=== PATIENT | male | born 1945 | race Caucasian/White ===

== ENCOUNTER 2025-02-15 08:45 | Outpatient (RCR) | payer MEDICARE, OTHER, SELFPAY | END 2025-02-15 16:43 | disposition home or self-care (01) | LOC: HO.WCC 08:45 | PROVIDERS: PCP Family Medicine; Visit Provider Surgery | DX: I87.302 Chronic venous hypertension (idiopathic) without complications of left lower extremity (principal); I11.0 Hypertensive heart disease with heart failure; I50.20 Unspecified systolic (congestive) heart failure; I73.00 Raynaud's syndrome without gangrene; G62.9 Polyneuropathy, unspecified; Z09 Encounter for follow-up examination after completed treatment for conditions other than malignant neoplasm; Z87.2 Personal history of diseases of the skin and subcutaneous tissue; Z87.891 Personal history of nicotine dependence | CPT/HCPCS: 11042; 11043; 29580; 97597; 99211; 99212 ==

== ENCOUNTER 2025-08-16 08:25 | Emergency (ER) | payer MEDICARE, OTHER, SELFPAY ==
--- NOTE | 2025-08-16 08:42 | ED.CPR ---
HPI - CPR General Chief Complaint: Cardiac Arrest/CPR Stated Complaint: CARDIAC ARREST,FALL OOB,APNIC,1SHOCK,PACEMAKER,8EP Time Seen by Provider: 08/16/25 08:41 Source: family and EMS Mode of arrival: EMS Limitations: other (CPR in progres) History of Present Illness ED Provider: HPI narrative: 79-year-old male with a history of atrial fibrillation on blood thinners, history of hypertension, CHF, reported kidney disease, nonsmoker nondrinker no drug use, reportedly family heard the patient fall, he was found unresponsive, EMS arrived on the scene with the patient in agonal respirations, reportedly he had advisable shocks x2 for ventricular fibrillation, then he was in pulseless electrical activity and the received a total of the additional 8 doses of epi, and then had another episode of shockable rhythm that point decision was made by the cruise to transport patient to emergency department. He arrived with left IO in place, I gel in place, Erlin CPR. Related Data Allergies Allergy/AdvReac Type Severity Reaction Status Date / Time No Known Allergies (No Known Allergy Unverified 08/16/25 08:55 Allergies*) Review of Systems Review of Systems: Yes Unobtainable due to mental status PMFSH Social History Social History Advance Directives: No Advance Directives Information Provided: No Physical Exam Exam: Exam: CPR is in progress Pupils dilated 4 mm Abrasion to the right side of the temporal area I-gel in place, some blood in the tube Bagging easily, moving air throughout Abdomen nondistended Pelvis is stable, no hip or ankle deformities, chronic skin changes throughout Abrasion to left forearm, left hand, left knee noted No trauma noted to the back of the head or along the spine of the back Vital Signs: Vital Signs: BMI result Body Mass Index 27.4 Medical Decision Making Medical Decision Making MDM Narrative: 9:23 AM 08/16/2025 (Dr. Anshul Chambers): Patient presented with CPR in progress, he is on blood thinners as reported later by the family with evidence of injury to the right temporal area during the initial collapse, we continued resuscitation he was given another round of epinephrine, bedside ultrasound without pericardial effusion obvious RV, and there was no cardiac activity with some electrical activity on the monitor, he has been in PA and time of was called 08:33, I spoke to patient's family afterwards updated his daughter and his , confirmed he will was not using any drugs nonsmoker occasional social drinking, this will likely be a medical exam in his case given the fact that he had an injury. Lab Data Labs: Lab Results 08/16/25 Range/Units 08:30 POC Glucose 107 (60-115) mg/dL Procedures Ultrasound ED POC Ultrasound: EMERGENCY ULTRASOUND REPORT?Point of Care Cardiac (Echo-Focus), images I locally stored Emergent Cardiac for Indication: Resuscitation Views Used: Parasternal long, parasternal short, 4 chamber, subxiphoid, IVC Pericardial Effusion/Tamponade Findings: Not noted Global LV Fxn: No cardiac activity IVC Dilation and Resp Variation: No pericardial effusion, no obvious RV strain, no cardiac activity Discharge Plan Discharge Clinical Impression: Cardiac arrest Patient Disposition: Discharge Sum: Diag PCOD Cause of : Ventricular fibrillation
[2025-08-16 08:53] VITALS: BMI 27.4
[2025-08-16 09:01] LABS: Glucose, Whole Blood 107 mg/dL (60-115)
--- NOTE | 2025-08-16 09:03 | PC.NURSE ---
patient brought in by ems for unwitnessed cardiac arrest, per ems patient heard patient fall oob, ems found patient to be pulseless and apneic. see code sheet documentation. patient has pants (cut) and shirt (cut) for belongings, which are bagged and at bedside. patient is 91.8kg per bed scale, and aprox 6 feet tall. patient noted to have a left shoulder abrasion, left buttock bruising, bilat lower extrem mottling, left skin tear to knee and trujillo. right trujillo skin tear, left wrist and forearm abrasion. patient noted to have hematoma to right side of forehead. pending family notification by MD. no tattoos noted. patient has IO in left leg, I gel remains in place pending ME verification.
--- NOTE | 2025-08-16 09:23 | PC.NURSE ---
[facility] contacted, spoke with Nita, patient case accepted, . spoke with patients and daughter for notification.
--- NOTE | 2025-08-16 09:40 | MHC.EDTECH ---
0833 IS TIME OF DOCUMENTED BY DR ARTHUR @0933 CALL TO [place] MACHINE OPERATOR , DEMOGRAPHICS GIVEN, DR ARTHUR TAKES OVER CALL @0985 DR ARTHUR TELLS THIS COURT COMMISSIONER CASE WAS DECLINED BY ME AND HE WILL HAVE THE CASE NUMBER IN HIS CHART, TAKES WORKSHEET TO FILL OUT @ THIS TIME ALSO
--- NOTE | 2025-08-16 09:53 | MHC.EDTECH ---
FAMILY ARRIVES AT THIS TIME, HOSPITALITY JOB TITLES TO BRING THEM TO THE FAMILY ROOM
--- OUTSIDE RECORDS SUMMARY | 2025-08-16 11:20 | XMS_ITS | Clinical Summary ---
Author Organization [facility] Address [address] [place] [address] Phone Care Team Providers Care Top Former Name Role Phone Harry Riggs MD Primary Care Provider [phone] Allergies No known active allergies Medications allopurinol (ZYLOPRIM) 100 MG tablet Take 2 tablets by mouth 11/17/2020 Active apixaban (Eliquis) 5 MG tablet Take 1 tablet by mouth 01/03/2021 Active atorvastatin (Lipitor) 20 MG tablet Take 20 mg by mouth 01/03/2021 Active Calcium Carbonate-Vitami n D 600-200 MG-UNIT capsule Take 1 capsule by mouth 1 (one) time each day Active Dapagliflozin Propanediol 10 MG tablet Take 10 mg by mouth 07/20/2024 Active dorzolamide (TRUSOPT) 2 % ophthalmic solution 1 drop Active indomethacin (INDOCIN) 50 MG capsule Take 1 capsule by mouth in the morning and 1 capsule in the evening and 1 capsule before bedtime. 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 Dysthymia 09/28/2024 History of polyp of colon 09/28/2024 Hyperlipidemia 09/28/2024 Hypertensive heart disease 09/28/2024 Intestinal obstruction, not otherwise specified 09/28/2024 Left anterior fascicular block 09/28/2024 Mixed sleep apnea 09/28/2024 Prediabetes 09/28/2024 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 Chronic atrial fibrillation 08/13/2024 Congestive heart failure 08/13/2024 Hypertension 08/13/2024 Sick sinus syndrome 08/13/2024 Gout 05/19/2012 Encounters Date Type Department Care Team Description 08/04/2025 3:45 PM EST Office Visit [facility] [address] [place] [address] Hector Haeys MD Stage 3b chronic kidney disease (HCC) (Primary Dx) 08/02/2025 Orders Only [facility] [address] [place] [address] Hector Hayes MD Stage 3b chronic kidney disease (HCC) from Last 3 Months Family History Relation Status Comments Father Unknown Mother Unknown Social History Tobacco Use Types Packs/Day Years Used Date Smoking Tobacco: Never Alcohol Use Standard Drinks/Week Comments Yes 0 (1 standard drink = 0.6 oz pure alcohol) Alcoholic Drinks/day: 1-2 drinks per day Sex and Gender Information Value Date Recorded Sex Assigned at Not on file Legal Sex Male 10:39 AM EST Gender Identity Not on file Sexual Orientation Not on file Last Filed Vital Signs Vital Sign Reading Time Taken Comments Blood Pressure 110/62 08/04/2025 2:45 PM EST Pulse 65 08/04/2025 2:45 PM EST Temperature - - Respiratory Rate 16 02/09/2019 12:00 PM EDT Oxygen Saturation 99% 08/04/2025 2:45 PM EST Inhaled Oxygen Concentration - - Weight 90.1 kg (198 lb 9.6 oz) 08/04/2025 2:45 P M EST Height 185.4 cm (6' 1 ) 02/09/2019 12:00 PM EDT Body Mass Index 26.2 02/09/2019 12:00 PM EDT Plan of Treatment Upcoming Encounters Date Type Department Care Team (Late st Contact Info) Description 10/27/2025 1:45 PM EDT Office Visit [facility] [address] [place], [place] [address] Hector Hayes MD [address] [place] [address] Health Maintenance Due Date Last Done Comments Pneumococcal Vaccine: 50+ Years (3 of 3 - PCV) 10/01/2022 10/01/2021, 05/19/2012 Influenza Vaccine (#1) 2025 Hepatitis B Vaccine Aged Out No longe r eligible based on patient's age to complete this topic Procedures Procedure Name Priority Date/Time Associated Diagnosis Comments MAGNESIUM Routine 07/26/2025 9:59 AM EST URINE ALBUMIN / CREATININE RATIO Routine 07/26/2025 9:59 AM EST PROTEIN / CREATININE RATIO, URINE Routine 07/26/2025 9:59 AM EST RENAL FUNCTION PANEL Routine 07/26/2025 9:59 AM EST URINALYSIS Routine 07/26/2025 9:59 AM EST CBC AND DIFFERENTIAL Routine 07/26/2025 9:59 AM EST from Last 3 Months Results * Protein, Total, Random Urine w/Creatinine (Protein/Creat Ratio) (07/26/2025 9:59 AM EST) Creatinine, Ur 46.2 Not Estab. mg/dL [facility] Protein, Ur 6.6 Not Estab. mg/dL [facility] Urine Protein/Creatin ine Ratio 143 0 - 200 mg/g creat [facility] 07/26/2025 9:59 AM EST 07/26/2025 Hector Hayes MD LAB URINE ORDERABLES Final Result Performing Organization Address City/[facility]/ZIP Co de Phone Number [facility] [address] [place] [address] * Urine Albumin / Creatinine Ratio (07/26/2025 9:59 AM EST) Albumin, Urine 10.3 Not Estab. ug/mL [facility] Albumin/Creatin ine Ratio 22 0 - 29 mg/g creat [facility] Comment: Normal: 0 - 29 Moderately increased: 30 - 300 Severely increased: >300 07/26/2025 9:59 AM EST 07/26/2025 Hector Hayes MD LAB URINE ORDERABLES Final Result Performing Organization Address [facility] de Phone Number [facility] [address] [place] [address] * Urinalysis (07/26/2025 9:59 AM EST) Pathologist [facility] Specific [place], Urine 1.013 1.005 - 1.030 [facility] [phone] pH Urine 6.0 5.0 - 7.5 [facility] [phone] Color, Urine Yellow Yellow [facility] [phone] Appearance Urine Clear Clear [facility] WBC Esterase Urine Negative Negative [facility] [phone] Protein, Ur Negative Negative/Tra ce [facility] Glucose, Ur Negative Negative [facility] Ketones, Urine Negative Negative [facility] [place] Blood Urine Negative Negative [facility] [phone] Bilirubin Urine Negative Negative [facility] [place] [phone] Urobilinogen Urine 0.2 0.2 - 1.0 mg/dL [facility] Nitrite, Urine Negative Negative [facility] Microscopic Examination Comment [facility] Comment:Microscopic not humphrey cated and not performed. 07/26/2025 9:59 AM EST 07/26/2025 Hector Hayes MD LAB URINE ORDERABLES Final Result [facility] [address] [place] [address] * (ABNORMAL) CBC and Differential (07/26/2025 9:59 AM EST) WBC 7.1 3.4 - 10.8 x10E3/uL [facility] RBC 4.69 4.14 - 5.80 x10E6/uL [facility] Hemoglobin 16.0 13.0 - 17.7 g/dL [facility] Hematocrit 48.8 37.5 - 51.0 % [facility] MCV 104(H) 79 - 97 fL [facility] MCH 34.1(H) 26.6 - 33.0 pg [facility] MCHC 32.8 31.5 - 35.7 g/dL [facility] RDW 13.8 11.6 - 15.4 % [facility] Platelets 128(L) 150 - 450 x10E3/uL [facility] Neutrophils Relative 56 Not Estab. % [facility] Lymphocytes Relative 30 Not Estab. % [facility] Monocytes 11 Not Estab. % [facility] Eosinophils Relative 1 Not Estab. % [facility] Basophils Relative 1 Not Estab. % [facility] Neutrophils Absolute 4.0 1.4 - 7.0 x10E3/uL [facility] Lymphocytes Absolute 2.1 0.7 - 3.1 x10E3/uL [facility] Monocytes Absolute 0.8 0.1 - 0.9 x10E3/uL [facility] Eosinophils Absolute 0.1 0.0 - 0.4 x10E3/uL [facility] Basophils Absolute 0.1 0.0 - 0.2 x10E3/uL [facility] Immature Granulocytes 1 Not Estab. % [facility] Immature Grans (Absolute) 0.1 0.0 - 0.1 x10E3/uL [facility] nRBC Count 1(H) 0 - 0 % [facility] 07/26/2025 9:59 AM EST 07/26/2025 Hector Hayes MD LAB BLOOD ORDERABLES Final Result [facility] [address] [place] [phone] * (ABNORMAL) Magnesium (07/26/2025 9:59 AM EST) Magnesium 2.6(H) 1.6 - 2.3 mg/dL [facility] 07/26/2025 9:59 AM EST 07/26/2025 Hector Hayes MD LAB BLOOD ORDERABLES Final Result [facility] [address], [address] [place] [address] * (ABNORMAL) Renal Function Panel (07/26/2025 9:59 AM EST) Glucose 104(H) 70 - 99 mg/dL [facility] BUN 58(H) 8 - 27 mg/dL [facility] Creatinine 1.57(H) 0.76 - 1.27 mg/dL [facility] eGFR CKD-EPI CR 2020 45(L) >59 mL/min/1.7 3 [facility] BUN/Creatinine Ratio 37(H) 10 - 24 [facility] Sodium 132(L) 134 - 144 mmol/L [facility] Potassium 4.9 3.5 - 5.2 mmol/L [facility] Chloride 92(L) 96 - 106 mmol/L [facility] Bicarbonate (CO2) 31(H) 20 - 29 mmol/L [facility] Calcium 9.3 8.6 - 10.2 mg/dL [facility] Phosphorus 3.6 2.8 - 4.1 mg/dL [facility] Albumin 4.1 3.8 - 4.8 g/dL [facility] 07/26/2025 9:59 AM EST 07/26/2025 us Hector Hayes MD LAB BLOOD ORDERABLES Final Result [facility] [address], [address] [place] [address] from Last 3 Months Insurance [id number], [place] [facility] Medicare Care Teams Top Former Relationship Specialty Start Date End Date Harry Riggs MD [facility] [address] [place] [phone] PCP - General 06/22/19
--- NOTE | 2025-08-16 11:51 | PC.NURSE ---
two nurse verification of toe tag placement on patient, tag applied to left great toe. patient belongings tagged. awaiting supervisor rod placing confirmation
== END 2025-08-16 12:14 | disposition expired ==
PROVIDERS: Emergency Provider Emergency Medicine; PCP Family Medicine
DX: I46.9 Cardiac arrest, cause unspecified (principal); I48.91 Unspecified atrial fibrillation; S00.81XA Abrasion of other part of head, initial encounter; S50.812A Abrasion of left forearm, initial encounter; S80.212A Abrasion, left knee, initial encounter; S60.512A Abrasion of left hand, initial encounter; W19.XXXA Unspecified fall, initial encounter; I11.0 Hypertensive heart disease with heart failure; I50.9 Heart failure, unspecified; Y93.9 Activity, unspecified; Y92.013 Bedroom of single-family (private) house as the place of occurrence of the external cause; Y99.9 Unspecified external cause status; Z79.01 Long term (current) use of anticoagulants
CPT/HCPCS: 82947; 93308; 96374; 99281; 99285; J0168; J0618